=== PATIENT | male | born 1980 | race Caucasian/White ===

== ENCOUNTER → 2020-11-09 | Day surgery (SDC) | payer OTHER ==
[~2020-11-09] MED LIST: Lactated Ringers 1,000 ML IV SCH; Propofol 200 MG/20 ML SDV ONE
--- NOTE | 2020-11-10 06:36 | OR ---
DATE OF OPERATION: 11/09/2020 PREOPERATIVE DIAGNOSIS: ABNORMAL CT SCAN. POSTOPERATIVE DIAGNOSIS: ABNORMAL CT SCAN. SURGEON: Reji Nicole MD PROCEDURE: DIAGNOSTIC COLONOSCOPY WITH BIOPSIES X2. ANESTHESIA: MAC. COMPLICATIONS: None. SPECIMEN: Terminal ileum biopsy x2. FINDINGS: 1. Full-length diagnostic colonoscopy. 2. Normal terminal ileum. 3. No obvious lesions at hepatic flexure. 4. Very mild sigmoid diverticulosis. RECOMMENDATIONS: Routine medical followup with patient's primary provider and a followup colonoscopy in 5 years given family history of colon cancer. INDICATIONS: The patient was having some nondescript right upper quadrant pain, had a CAT scan of his abdomen which showed some thickening of the terminal ileum and questionable lesion of the hepatic flexure. He was sent for a diagnostic scope. DESCRIPTION OF PROCEDURE: The patient was prepped and draped, placed in the left lateral decubitus position. A lubricated Olympus colonoscope was inserted and with relative ease advanced to the cecum. Direct visualization of the ileocecal valve and appendiceal orifice was accomplished. The bowel prep was excellent. Upon withdrawal of the scope, the cecal pouch itself appeared benign. We intubated into the terminal ileum. I could see no signs of any inflammatory bowel disease or Crohn's disease. We did 2 random biopsies of the terminal portion of the ileum without any complication. The ascending colon was benign. We thoroughly evaluated the hepatic flexure as the patient had an abnormality on his CAT scan here as well. There were no signs of any polyps, masses, or lesions. The rest of the colon was completely benign without any polyps, masses, ulceration, or bleeding sites. No vascular abnormalities or signs of colitis. The patient does have a few scattered diverticula in the sigmoid area very mild in severity. The rectal vault was benign. Retroflexion of the scope in the rectum showed no perianal lesions. Air was suctioned. The scope removed without complication. ANGELICA/EDWAR /[id number]
== END ==
LOC: CC.SDS 11:34
PROVIDERS: ATTEND Family Medicine
DX: D12.5 Benign neoplasm of sigmoid colon (principal); K57.30 Diverticulosis of large intestine without perforation or abscess without bleeding; E66.9 Obesity, unspecified; Z88.8 Allergy status to other drugs, medicaments and biological substances; Z88.5 Allergy status to narcotic agent; Z79.899 Other long term (current) drug therapy; Z98.890 Other specified postprocedural states; Z68.31 Body mass index [BMI] 31.0-31.9, adult
CPT/HCPCS: 45380; J2704; J7120; 00811